=== PATIENT | male | born 1990 | race Hispanic/Latino ===

== ENCOUNTER 2024-09-08 23:54 | Emergency (ER) | payer SELFPAY ==
[~2024-09-08] VITALS: Ht 170.2 cm; Wt 63.5 kg
--- NOTE | 2024-09-09 00:02 | NUR ---
PATIENT REPORTS HE RECENTLY STARTED TAKING A PENICILLIN ANTIBIOTIC FOR A FINGER INFECTION. REPORTS ANTIBIOTIC WAS NOT PRESCRIBED, HE JUST BOUGHT IT AND STARTED TAKING IT
[2024-09-09] MEDS: DiphenhydrAMINE HCL 50 MG/ML VIAL IV ONE (00:24)
[2024-09-09] MEDS: Solu-medROL 125MG VIAL IVP ONE (00:24)
[2024-09-09] MEDS: FAMOTIDINE 20MG VIAL IV ONE (00:24)
[2024-09-09] MEDS: 0.9%NACL 1000ML 1,000 ML IV ONE (00:31)
[2024-09-09 01:24] VITALS: BP 109/72; PULSE 82; RESP 18; TEMP 98.2; O2SAT 98
[2024-09-09] MEDS ORDERED: DIPH50 PO (01:33)
--- NOTE | 2024-09-09 01:34 | ERN ---
ED Note History of Present Illness Stated Complaint: ALLERGIC REACTION Chief Complaint: Allergic Reaction Time Seen by MD: 00:01 Time Seen by Midlevel: 00:01 Dictation: The patient is a 34-year-old male with a past medical history who presents to the emergency department with complaints of rash onset 1 hour prior to arrival. Patient denies any allergens but reports taking penicillin two days ago. No other complaints reported. Allergies: Coded Allergies: No Known Drug Allergies (Unverified Allergy, Unknown, 09/09/24) Past Medical History Past Medical History: No Pertinent History Surgical History: None RN Note Reviewed/Agreed w/PFSH: Yes Review of System Dictation Constitutional: Negative for fever,chills, and weight loss Eyes: Negative for injury, pain,redness, and discharge ENT: Negative for injury,pain or swelling Cardiovascular: Negative for chest pain, palpitations, and edema Respiratory: Negative for shortness of breath, cough, and wheezing, Abdomen/GI: Negative for abdominal pain, nausea, vomiting, diarrhea, and constipation Back: Negative for injury and pain : Negative for injury, bleeding and discharge MS/Extremity: Negative for injury and deformity Skin: Negative for discoloration positive for rash Neuro: Negative for headache, weakness, numbness, tingling, and seizure Psych: Negative for suicide ideation, homicidal ideation, and hallucinations Initial Vital Sign VS Vital Signs Date Time Temp Pulse Resp B/P (MAP) Pulse Ox O2 Delivery O2 Flow Rate FiO2 09/08/24 23:59 98.6 91 18 101/67 98 Room Air* 0 21 Physical Exam Dictation Vital Signs reviewed General Appearance: Alert, oriented x 3, no acute distress, well developed, nourished. Head and Face: non-traumatic. Eyes: PERRL, pink conjunctivas, eyelid no trauma, anterior chamber with arcus senilis. Ears: Pinnas intact and no signs of trauma or erythema ear canals clear and no discharge TM no erythema Nose: No discharge, no bleeding. Oropharynx: Mouth normal, tongue pink. pharynx clear,no erythema, tonsils no exudates, no abscesses noted, mucous membrane moist Neck: Supple, non-tender, no thyromegaly, no masses, no JVD, no bruits Breast:Deferred Chest:No tenderness, no crepitus, no paradoxical movement, no retractions Lungs:Clear, well-ventilated, symmetric, no rales, no wheezing, no rhonchi, no stridor, good breath sounds bilaterally Heart: Regular rate, regular rhythm, no murmur, no gallops Vascular: no peripheral edema, Abdomen: Soft, positive bowel sounds, nondistended, no guarding, nontender, no rebound, no masses no hepatomegaly, no splenomegaly, no Botello's sign, no hernias. Rectal: Deferred Genital: Deferred Neurological: Normal speech, motor function intact, sensory function intact Musculoskeletal: Neck nontender, full range of motion, back nontender, full range of motion, Extremities: nontender, full range of motion Skin: Color pink, dry, no turgor,no lacerations, no abrasions, no contusions. Hives noted to abdomen and back Lymphatic: Deferred Results (Laboratory/Radiology) Labs Reviewed?: Yes ED Course ED Course Orders Procedure Category Date Status Time Methylprednisolone PHA 09/09/24 Complete Succ 125mg (Solu-Medr 00:30 Famotidine 20mg Vial PHA 09/09/24 Complete (Pepcid 20mg Vial) 00:30 Diphenhydramine Hcl PHA 09/09/24 Complete (Benadryl Inj) 00:30 0.9%Nacl 1000ml (Ns PHA 09/09/24 Complete 1000ml) 00:30 Current Medications Medications (Trade) Dose Ordered Sig/Shiv Route PRN Reason Start Time Stop Time Status Last Admin Dose Admin Diphenhydramine HCl (BENAdryl INJ) 25 mg ONCE ONCE IV 09/09/24 00:30 09/09/24 00:31 DC 09/09/24 00:24 Famotidine (Pepcid 20mg Vial) 20 mg ONCE ONCE IV 09/09/24 00:30 09/09/24 00:31 DC 09/09/24 00:24 Methylprednisolone Sodium Succinate (Solu-medROL 125MG) 125 mg ONCE ONCE IVP 09/09/24 00:30 09/09/24 00:31 DC 09/09/24 00:24 Sodium Chloride 1,000 ml @ 0 mls/hr ONCE ONCE IV 09/09/24 00:30 09/09/24 00:31 DC 09/09/24 00:31 Vital Signs Date Time Temp Pulse Resp B/P (MAP) Pulse Ox O2 Delivery O2 Flow Rate FiO2 09/09/24 01:24 98.2 82 18 109/72 98 Room Air* 0 21 09/08/24 23:59 98.6 91 18 101/67 98 Room Air* 0 21 Medical Decision Making MDM The patient is a 34-year-old male with a past medical history who presents to the emergency department with complaints of rash onset 1 hour prior to arrival. Patient denies any allergens but reports taking penicillin two days ago. No other complaints reported. Patient's rash completely gone after IV medications. Patient instructed not to continue taking penicillin. Patient reports he had already finished the penicillin. On physical exam patient is in no acute distress, no swelling noted to throat or tongue, bilateral clear lung sounds. Stable vital signs. Patient instructed to follow up with PCP. Differential diagnosis: Allergic reaction, cellulitis, anaphylaxis Need for hospitalization: Patient does not meet criteria for hospitalization. There are no social concerns with this patient. DX & DISP Disposition: Discharge Departure Impression: Primary Impression: Allergic reaction Condition: Stable Scripts Diphenhydramine HCl (Benadryl) 50 Mg Cap 50 MG PO TID PRN for ALLERGIC REACTION for 10 Days, #30 CAP 0 Refills Prov: BECCA NUGENT 09/09/24 Additional Instructions: Please follow up with your primary doctor in 1-2 days. If rash returns please take Benadryl. If you have trouble breathing, drooling or your tongue swells please return to ER and call 911. Avoid any known allergens. FOLLOW-UP WITH PRIMARY CARE PROVIDER IN 1 TO 2 DAYS. TAKE MEDICATIONS DIRECTED HERE IN THE EMERGENCY ROOM. OKAY TO CONTINUE HOME MEDICATIONS UNLESS OTHERWISE DISCUSSED DURING YOUR VISIT IN THE EMERGENCY ROOM TODAY. RETURN TO YOUR NEAREST EMERGENCY ROOM IF SYMPTOMS WORSEN OR IF THERE IS NO IMPROVEMENT. CALL 911 IF YOU NEED IMMEDIATE ASSISTANCE. TAKE TYLENOL OR MOTRIN [id number] NEEDED AND IF NO CONTRAINDICATIONS ARE PRESENT. INCREASE ORAL HYDRATION. A WOUND CULTURE OR URINE CULTURE WAS ORDERED HERE IN THE [facility] RO[facility] DEPARTMENT PLEASE FOLLOW-UP WITH PRIMARY CARE PROVIDER AND ADVISE THEM TO GET REPEAT PORTS FROM OUR FACILITY. IF YOU HAD ANY LINA WRAP/SPLINTS THAT WERE APPLIED HERE, PLEASE DO NOT REMOVE THEM UNTIL YOU SEE YOUR PRIMARY CARE OR SPECIALTY. Referrals: SELF,REFERRAL (PCP) Time of Disposition: 01:32 I have reviewed the case, and I agree with, Diagnosis and Plan BECCA NUGENT Sep 09, 2024:34
== END 2024-09-09 01:51 | disposition home or self-care (01) ==
LOC: EDH 23:54
DX: T78.40XA Allergy, unspecified, initial encounter (principal); X58.XXXA Exposure to other specified factors, initial encounter
CPT/HCPCS: 99284; 96374; 96375; J2919; J1200; J3490; J7030